=== PATIENT | male | born 1995 | race African-American/Black ===

== ENCOUNTER 2017-02-14 11:25 | Emergency (ER) | payer SELFPAY ==
[2017-02-14 11:48] VITALS: BP 128/80; BMI 26.4
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
== END 2017-02-14 14:06 | disposition home or self-care (01) ==
LOC: ER 12:04
DX: S20.20XA Contusion of thorax, unspecified, initial encounter (principal); S63.639A Sprain of interphalangeal joint of unspecified finger, initial encounter; M54.89 Other dorsalgia; R07.2 Precordial pain; V49.9XXA Car occupant (driver) (passenger) injured in unspecified traffic accident, initial encounter
CPT/HCPCS: 72072; 72110; 73130; 99282; 99283